=== PATIENT | female | born 1945 | race Caucasian/White ===

== ENCOUNTER 2016-12-04 07:09 | Emergency (ER) | payer MEDICARE ==
--- NOTE | 2016-12-04 07:19 | UC ---
Lower Extremity/Ankle HPI - HPI Summary HPI Summary: 71 YEAR OLD FEMALE PRESENTS WITH SWELLING/REDNESS ON THE TOES OF HER LEFT FOOT. - History of Current Complaint Stated Complaint: SWOLLEN FOOT Time Seen by Provider: 12/04/16 07:18 - Allergies/Home Medications Allergies/Adverse Reactions: Allergies Allergy/AdvReac Type Severity Reaction Status Date / Time ENVIRONMENT/SEASONAL Allergy ITCHY Uncoded 02/16/16 07:52 WATERY EYES Home Medications: Home Medications Ampicillin CAP* [Ampicillin Cap*] 1 tab PO TID 12/04/16 [History Confirmed 12/04] Fexofenadine (NF) [Deidra (NF)] 1 tab PO DAILY 12/04/16 [History Confirmed ] Pseudoephedrine-Guaifenesin [Mucinex D 60-600 mg] 1 tab PO DAILY 12/04/16 [ History Confirmed 12/04/16] PMH/Surg Hx/FS Hx/Imm Hx - Surgical History Surgical History: None Surgery Procedure, Year, and Place: TONSILLECTOMY A CHILD. 2000 HEMORRHOIDECTOMY, [facility] - Social History Alcohol Use: Daily Substance Use Type: None Smoking Status (MU): Never Smoked Tobacco Type: Cigarettes Amount Used/How Often: 1 PPD FOR ABOUT 15 YEARS Have You Smoked in the Last Year: No When Did the Patient Quit Smoking/Using Tobacco: 1992 Review of Systems Constitutional: Negative Skin: Rash, Other - REDNESS/SWELLING LEFT TOES Eyes: Negative ENT: Negative Respiratory: Negative Cardiovascular: Negative Gastrointestinal: Negative Genitourinary: Negative Motor: Negative Neurovascular: Negative Musculoskeletal: Negative Neurological: Negative Psychological: Negative All Other Systems Reviewed And Are Negative: Yes Physical Exam Triage Information Reviewed: Yes Eye Exam: Normal ENT Exam: Normal Dental Exam: Normal Neck exam: Normal Neck: Positive: 1 Respiratory Exam: Normal Cardiovascular Exam: Normal Abdominal Exam: Normal Musculoskeletal Exam: Normal Neurological Exam: Normal Psychological Exam: Normal Skin: Positive: rashes - SWELLING/REDNESS TOES OF LEFT FOOT Lower Extremity Course/Dx - Differential Dx/Diagnosis Provider Diagnoses: CELLULITIS LEFT FOOT. RASH LEFT FOOT Discharge - Discharge Plan Condition: Stable Disposition: HOME Prescriptions: Mupirocin 2% OINT* [Bactroban 2 % Oint*] 1 applic TOPICAL BID #1 tube Sulfamethox/Trimethoprim DS* [Bactrim DS 800/160 TAB*] 1 tab PO BID #14 tab Patient Education Materials: Insect Bite or Sting (ED) Referrals: Calderon Pereira MD [Primary Care Provider] - If Needed
[2016-12-04 07:36] VITALS: BP 151/84
== END 2016-12-04 07:50 | disposition home or self-care (01) ==
LOC: UCEAST 07:09
DX: L03.116 Cellulitis of left lower limb (principal); R21 Rash and other nonspecific skin eruption; Z87.891 Personal history of nicotine dependence
CPT/HCPCS: 99212; G0463